=== PATIENT | male | born 1980 | race Native Hawaiian/Other Pacific Islander ===

== ENCOUNTER 2017-07-30 10:27 | Emergency (ER) | payer OTHER ==
--- NOTE | 2017-07-30 12:23 | ED Physician Documentation ---
PD HPI UPPER EXT INJURY - Stated complaint Stated Complaint: R SHOULDER PX - Chief complaint Chief Complaint: Ext Problem - History obtained from History obtained from: Patient - History of Present Illness Location: Right, Shoulder Type of injury: Other (no injury) Timing - duration: Months (3 or 4 months.) Pain level max: 1 Worsened by: Moving, Palpating Associated symptoms: No: Weakness, Numbness Similar symptoms before: Has not had sx before - Additonal information Additional information: The patient is a 37-year-old male who presents with right shoulder pain. 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 He denies any specific injury. The pain is worse with overhead movement or with rotation of the shoulder. It is better when he tapes his shoulder in a posterior direction. He is right-hand dominant. He denies numbness or weakness. He denies the use of anabolic steroids. Review of Systems Constitutional: denies: Fever Nose: denies: Congestion Throat: denies: Sore throat Cardiac: denies: Chest pain / pressure Respiratory: denies: Dyspnea, Cough GI: denies: Abdominal Pain, Nausea, Vomiting Skin: denies: Rash Musculoskeletal: reports: Joint pain (right shoulder). denies: Neck pain, Back pain Neurologic: denies: Focal weakness, Numbness, Headache PD PAST MEDICAL HISTORY - Past Medical History Past Medical History: No Cardiovascular: None Respiratory: None Neuro: None Endocrine/Autoimmune: None - Past Surgical History Past Surgical History: No - Present Medications Home Medications: Ambulatory Orders Medication Instructions Recorded Confirmed Ibuprofen [Motrin] 400 mg PO Q6H PRN 07/30/17 07/30/17 - Allergies Allergies/Adverse Reactions: Allergies Allergy/AdvReac Type Severity Reaction Status Date / Time No Known Drug Allergies Allergy Verified 07/30/17 10:39 - Social History Does the pt smoke?: No Smoking Status: Never smoker Does the pt have substance abuse?: No - Immunizations Immunizations are current?: Yes PD ED PE NORMAL - Vitals Vital signs reviewed: Yes (Borderline hypertension initially.) - General General: Alert and oriented X 3, Well developed/nourished - HEENT HEENT: Atraumatic, Moist mucous membranes, Pharynx benign - Neck Neck: Supple, no meningeal sign, No bony TTP, No adenopathy, No JVD - Cardiac Cardiac: RRR, No murmur - Respiratory Respiratory: No respiratory distress, Clear bilaterally - Abdomen Abdomen: Soft, Non tender - Back Back: No CVA TTP, No spinal TTP - Derm Derm: No rash - Extremities Extremities: Other (There is tenderness palpation of the anterior shoulder along the anterior rotator cuff. He is able to elevate his right arm to 90 where he stops due to discomfort. He can abduct fully without significant discomfort. Distal neurovascular is intact.) - Neuro Neuro: Alert and oriented X 3, No motor deficit, No sensory deficit Results - Vitals Vitals: Vital Signs - 24 hr 07/30/17 07/30/17 10:36 12:36 Temperature 37.1 C 36.6 C Heart Rate 71 62 Respiratory 18 18 Rate Blood Pressure 133/75 H 111/72 O2 Saturation 99 100 Oxygen O2 Source Room air - Rads (name of study) right shoulder Radiology: Prelim report reviewed, EMP read contemporaneously, See rad report ( Normal shoulder radiography.) PD MEDICAL DECISION MAKING - ED course Complexity details: reviewed results, re-evaluated patient, considered differential, d/w patient ED course: The patient's presentation is most consistent with rotator cuff injury. X-ray reveals no bony abnormality. Treatment in the emergency department included application of a right arm sling. I discussed with him orthopedic follow-up, as well as potentially worrisome signs or symptoms that should prompt reevaluation in the emergency department. Departure - Departure Disposition: 01 Home, Self Care Clinical Impression: Rotator cuff disorder Qualifiers: Laterality: right Qualified Code(s): M67.911 - Unspecified disorder of synovium and tendon, right shoulder Condition: Stable Instructions: ED Tendinitis Rotator Cuff Follow-Up: [facility] [Provider Group] Comments: Wear the arm sling for comfort. Apply ice pack intermittently to help decrease inflammation. You can use ibuprofen, up to 800 mg 3 times daily for its anti-inflammatory effect. Follow-up with orthopedics. Call to schedule an appointment. Return to the emergency department if you develop increasing pain, numbness or weakness, or otherwise worsening symptoms.
[2017-07-30 12:37] VITALS: BP 111/72
--- NOTE | 2017-07-30 13:12 | XRAY Preliminary Report ---
Exam: XR SHOULDER 3 VIEW RT IMPRESSION: Normal shoulder radiography. [facility] SITE ID: [id number]
--- NOTE | 2017-07-30 13:15 | XRAY Report ---
EXAM: RIGHT SHOULDER RADIOGRAPHY EXAM DATE: 07/30/2017 12:57 PM. CLINICAL HISTORY: Pain for one month without precipitating injury, increasing over the last 2 weeks. COMPARISON: None. TECHNIQUE: 3 views. FINDINGS: Bones: Normal. No fracture or bone lesion. Joints: The glenohumeral and acromioclavicular joints are normal. Soft tissues: The visualized hemithorax is unremarkable. No soft tissue calcification nor swelling. IMPRESSION: Normal shoulder radiography. [facility] Referring Provider Line: [phone] SITE ID: [id number]
== END 2017-07-30 13:38 | disposition home or self-care (01) ==
LOC: ED 10:27
DX: M67.911 Unspecified disorder of synovium and tendon, right shoulder (principal)
CPT/HCPCS: 99283

== ENCOUNTER 2022-10-07 11:45 | Outpatient (CLI) | payer OTHER ==
--- NOTE | 2022-10-07 14:14 | XRAY Report ---
PROCEDURE: Lumbar Spine 2 View INDICATIONS: LOW BACK PAIN, UNSPECIFIED TECHNIQUE: 2 views of the lumbar spine were acquired. COMPARISON: None. FINDINGS: Bones: 5 [id number] vertebrae are present. There is normal bony alignment. No minimal foramin al narrowing at L5-S1 and to a lesser degree L4-5. Minimal disc space narrowing is present at L4-5, L 5-S1. Vertebral body compression fractures. No suspicious bony lesions. Soft tissues: Overlying bowel gas pattern is normal. No suspicious soft tissue calcifications. IMPRESSION: Minimal degenerative disc space and foraminal narrowing at L4-5, L5-S1. Reviewed by: Tiana Bunch MD on 10/07/2022 2:13 PM PDT Approved by: Tiana Bunch MD on 10/07/2022 2:13 PM PDT Station ID: [id number]
== END 2022-10-07 11:46 | disposition home or self-care (01) ==
LOC: DI 11:45
PROVIDERS: ATTEND Nurse Practitioner
DX: M47.817 Spondylosis without myelopathy or radiculopathy, lumbosacral region (principal); M48.07 Spinal stenosis, lumbosacral region